=== PATIENT | male | born 1965 | race Two or more races ===

== ENCOUNTER 2018-05-09 14:37 | Inpatient (IN) | payer MEDICARE, OTHER | END 2018-05-18 13:10 | disposition home or self-care (01) | LOC: DOU IN ICU 20:40 → ER 14:37 → TELE-WESTW 05-14 13:54 → TELE 18:51 → DOU IN ICU 20:41 | PROC: 0DJD8ZZ Inspection of Lower Intestinal Tract, Via Natural or Artificial Opening Endoscopic (ICD-10-PCS; principal; 2018-05-13 10:46) | DX: A41.9 Sepsis, unspecified organism (principal); J18.9 Pneumonia, unspecified organism; N17.0 Acute kidney failure with tubular necrosis; E43 Unspecified severe protein-calorie malnutrition; E87.1 Hypo-osmolality and hyponatremia; G82.20 Paraplegia, unspecified; N18.4 Chronic kidney disease, stage 4 (severe); F11.20 Opioid dependence, uncomplicated; K92.2 Gastrointestinal hemorrhage, unspecified; D69.6 Thrombocytopenia, unspecified; D50.9 Iron deficiency anemia, unspecified ==